=== PATIENT | male | born 1945 | race Caucasian/White ===

== ENCOUNTER 2016-07-13 13:23 | Emergency (ER) | payer OTHER ==
[~2016-07-13] VITALS: Ht 177.8 cm; Wt 81.6 kg
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
--- NOTE | 2016-07-13 15:39 | RADIOLOGY REPORT ---
EXAMINATION: XR CHEST CLINICAL INFORMATION: Chest wall tenderness COMPARISON: None TECHNIQUE: 2 views of the chest were obtained. FINDINGS: Cardiomediastinal silhouette is within normal limits. Lungs are clear. Bony thorax is intact. IMPRESSION: No acute pulmonary disease.
[2016-07-13 16:09] VITALS: BP 142/72
== END 2016-07-13 16:11 ==
LOC: ERH 13:23
DX: R07.89 Other chest pain (principal); V43.52XA Car driver injured in collision with other type car in traffic accident, initial encounter
CPT/HCPCS: 93005; 93010; 96372; J1885